=== PATIENT | female | born 2000 ===

== ENCOUNTER 2019-10-15 13:30 | Inpatient (IN) | payer MEDICAID ==
[~2019-10-15] VITALS: Ht 160 cm; Wt 57.5 kg
[2019-10-15 14:43] LABS: CLARITY,URINE CLOUDY (Clear); COLOR,URINE YELLOW (Yellow); GLUCOSE, URINE NEGATIVE (Neg); KETONES,URINE NEGATIVE (Neg); LEUKOCYTE ESTERASE ,URINE SMALL (Neg); NITRITES, URINE NEGATIVE (Neg); OCCULT BLOOD,URINE LARGE (Neg); PH,URINE 7.5 (4.8-8.0); PROTEIN,URINE 100 mg/dl (Neg); UA COLLECTION TYPE CLN CATCH MIDSTREAM; UROBILINOGEN,URINE >=8.0 E.U/dL (0.2-1.0)
[2019-10-15 14:44] LABS: URINE HCG NEGATIVE (NEG)
[2019-10-15 14:49] LABS: MUCUS STRANDS FEW /LPF (Neg)
[2019-10-15 14:50] LABS: BACTERIA,URINE 2+ /HPF (Neg); RBC,URINE 50-100 /HPF (0-2); SQUAMOUS EPITHELIAL CELL,UR MODERATE /LPF (FEW); WBC,URINE 50-100 /HPF (0-4)
[2019-10-15] MEDS ORDERED: ketorolac tromethamine 15mg/ml inj. IV ONE (15:10)
[2019-10-15] MEDS ORDERED: normal saline 1000ML IV soln IVB ONE (15:25)
[2019-10-15] MEDS ORDERED: piperacillin/tazo 3.375gm/50ml 50 ML IV ONE (15:29)
[2019-10-15] MEDS ORDERED: CefTRIAXone/D5W-Rocephin 1gm 50 ML IV ONE (15:30)
[2019-10-15 15:44] LABS: BASOPHILS % (AUTO) 0.1 % (0-1); EOSINOPHILS # (AUTO) 0.7 X10'3 (0-0.9); EOSINOPHILS % (AUTO) 3.5 % (0-6); HEMATOCRIT 37.9 % (35.0-45.0); HEMOGLOBIN 13.1 g/dl (12.0-16.0); LYMPHOCYTES # (AUTO) 0.7 X10'3 (1.1-4.8); LYMPHOCYTES % (AUTO) 3.4 % (21-51); MEAN CORPUSCULAR HEMOGLOBIN 31.6 PG (27.0-31.0); MEAN CORPUSCULAR HGB CONC 34.5 g/dL (33.0-36.5); MEAN CORPUSCULAR VOLUME 91.7 FL (78-98); MEAN PLATELET VOLUME 8.4 FL (7.4-10.4); MONOCYTES % (AUTO) 5.2 % (2-12); NEUTROPHILS # (AUTO) 17.1 X10'3 (1.8-7.7); NEUTROPHILS % (AUTO) 87.8 % (42-75); PLATELET COUNT 204 X10'3 (140-440); RED BLOOD COUNT 4.13 X10'6 (4.20-5.60); RED CELL DISTRIBUTION WIDTH 14.3 % (11.5-14.5); WHITE BLOOD COUNT 19.4 X10'3 (4.5-11.0)
[2019-10-15 16:00] LABS: ALBUMIN 2.6 G/DL (3.4-5.0); ALBUMIN/GLOBULIN RATIO 0.5 (1.1-1.5); ANION GAP 15 (8-16); ASPARTATE AMINO TRANSFERASE 29 U/L (10-37); BILIRUBIN,TOTAL 0.9 MG/DL (0.1-1.0); BLOOD UREA NITROGEN 14 MG/DL (7-18); BUN/CREATININE RATIO 10.8 (6.6-38.0); CALCIUM 8.4 MG/DL (8.5-10.1); CHLORIDE 105 MMOL/L (99-107); GLUCOSE 104 MG/DL (70-104); SODIUM 139 MMOL/L (135-145); TOTAL CARBON DIOXIDE 18.7 MMOL/L (24-32); TOTAL PROTEIN 7.5 G/DL (6.4-8.2); eGFR 52 ML/MIN
[2019-10-15 16:01] LABS: ALANINE AMINOTRANSFERASE 16 U/L (12-78); ALKALINE PHOSPHATASE 150 IU/L (46-116); AMYLASE 26 U/L (25-115); LIPASE 56 U/L (73-393)
--- NOTE | 2019-10-15 16:14 | NUR ---
Lab called to report negative Covid test on pt.
[2019-10-15] MEDS ORDERED: potassium CL 10mEq/100ml bag 100 ML IV PRN ×2 (19:15)
[2019-10-15] MEDS ORDERED: potassium Cl 20 mEq SR tablet PO PRN (19:15)
[2019-10-15] MEDS ORDERED: magnesium Cl slow-release 64mg tablet PO PRN (19:15)
[2019-10-15] MEDS ORDERED: magnesium 2GM in 50ml NS 50 ML IV PRN (19:15)
[2019-10-15] MEDS ORDERED: mag hydrox/Alum hydrox/simeth 30ml oral suspension PO PRN (19:15)
[2019-10-15] MEDS ORDERED: magnesium hydroxide 30ml (MOM) UD suspension PO PRN (19:15)
[2019-10-15] MEDS ORDERED: magnesium 4gm in 100ml NS 100 ML IV PRN (19:15)
[2019-10-15] MEDS ORDERED: ondansetron/PF 4mg/2ml inj IV PRN (19:15)
[2019-10-15] MEDS ORDERED: morphine 2 MG/ML inj. syringe IV PRN (19:15)
[2019-10-15] MEDS ORDERED: NO HOME MEDS (19:22)
[2019-10-15 19:37] LABS: CLARITY,URINE CLEAR (Clear); COLOR,URINE YELLOW (Yellow); GLUCOSE, URINE NEGATIVE (Neg); KETONES,URINE TRACE mg/dl (Neg); LEUKOCYTE ESTERASE ,URINE TRACE (Neg); NITRITES, URINE NEGATIVE (Neg); OCCULT BLOOD,URINE MODERATE (Neg); PH,URINE 6.5 (4.8-8.0); PROTEIN,URINE NEGATIVE (Neg)
[2019-10-15 19:44] LABS: BACTERIA,URINE NONE SEEN /HPF (Neg); RBC,URINE NONE SEEN /HPF (0-2); SQUAMOUS EPITHELIAL CELL,UR MODERATE /LPF (FEW); UA COLLECTION TYPE STRAIGHT CATH; WBC,URINE 0-4 /HPF (0-4)
[2019-10-15] MEDS: K and/or MAG REPLACEMENT MC SCH (20:00)
[2019-10-15] MEDS: normal saline 1000ml 1,000 ML IV SCH (20:06)
[2019-10-15] MEDS: acetaminophen 325mg tablet PO PRN (20:14)
--- NOTE | 2019-10-15 20:47 | NUR ---
Patient in room ED 16. I have received report from THIAGO Lambert and had the opportunity to ask questions and assume patient care.
--- NOTE | 2019-10-15 20:53 | NUR ---
pt arrived on the floor, a/o x4 in no distress
[2019-10-16] VITALS: BP 108/65
[2019-10-16] MEDS: HYDROcodone/acetaminophen 5mg/325mg tablet PO PRN ×4 (02:20→18:35)
[2019-10-16 05:09] LABS: BASOPHILS % (AUTO) 0.2 % (0-1); EOSINOPHILS # (AUTO) 0.5 X10'3 (0-0.9); EOSINOPHILS % (AUTO) 2.8 % (0-6); HEMATOCRIT 32.5 % (35.0-45.0); HEMOGLOBIN 11.2 g/dl (12.0-16.0); LYMPHOCYTES # (AUTO) 1.2 X10'3 (1.1-4.8); LYMPHOCYTES % (AUTO) 7.3 % (21-51); MEAN CORPUSCULAR HGB CONC 34.5 g/dL (33.0-36.5); MEAN CORPUSCULAR VOLUME 92.7 FL (78-98); MEAN PLATELET VOLUME 8.5 FL (7.4-10.4); MONOCYTES # (AUTO) 0.9 X10'3 (0-0.9); MONOCYTES % (AUTO) 5.5 % (2-12); NEUTROPHILS # (AUTO) 13.4 X10'3 (1.8-7.7); NEUTROPHILS % (AUTO) 84.2 % (42-75); PLATELET COUNT 187 X10'3 (140-440); RED CELL DISTRIBUTION WIDTH 14.6 % (11.5-14.5); WHITE BLOOD COUNT 15.9 X10'3 (4.5-11.0)
[2019-10-16] MEDS: normal saline 1000ml 1,000 ML IV SCH ×3 (05:13→16:24)
[2019-10-16 05:21] LABS: ALANINE AMINOTRANSFERASE 14 U/L (12-78); ALBUMIN 1.9 G/DL (3.4-5.0); ALBUMIN/GLOBULIN RATIO 0.5 (1.1-1.5); ALKALINE PHOSPHATASE 132 IU/L (46-116); ANION GAP 12 (8-16); ASPARTATE AMINO TRANSFERASE 23 U/L (10-37); BILIRUBIN,TOTAL 0.6 MG/DL (0.1-1.0); BLOOD UREA NITROGEN 11 MG/DL (7-18); BUN/CREATININE RATIO 9.6 (6.6-38.0); CALCIUM 7.8 MG/DL (8.5-10.1); CHLORIDE 110 MMOL/L (99-107); CREATININE 1.14 MG/DL (0.40-0.90); GLUCOSE 140 MG/DL (70-104); MAGNESIUM 1.9 MG/DL (1.5-2.4); POTASSIUM 3.4 MMOL/L (3.5-5.1); SODIUM 140 MMOL/L (135-145); TOTAL CARBON DIOXIDE 18.3 MMOL/L (24-32); TOTAL PROTEIN 5.8 G/DL (6.4-8.2); eGFR 60 ML/MIN
--- NOTE | 2019-10-16 06:49 | NUR ---
Problems reprioritized. Patient report given, questions answered & plan of care reviewed with Elmo.
[2019-10-16 07:42] VITALS: BP 126/92
[2019-10-16 07:43] LABS: TOTAL CELLS COUNTED 100; TOXIC GRANULATION 2+
[2019-10-16 07:44] LABS: TOXIC VACUOLATION 1+
[2019-10-16 07:46] LABS: PLATELET ESTIMATE NORMAL
[2019-10-16] MEDS: K and/or MAG REPLACEMENT MC SCH ×2 (08:00→19:32)
[2019-10-16] MEDS: potassium Cl 20 mEq SR tablet PO PRN ×3 (08:07→17:51)
[2019-10-16] MEDS: CefTRIAXone/D5W-Rocephin 1gm 50 ML IV SCH (08:07)
[2019-10-16 12:00] VITALS: BP 111/75
[2019-10-16 12:26] VITALS: BP 111/75
--- NOTE | 2019-10-16 14:23 | NUR ---
Patient self reported yellow urine, none was present. Addendum: 10/16/19 at 1428 by Vic CAT Amended: Links added.
--- NOTE | 2019-10-16 14:56 | NUR ---
Patient self reported last bm on 10/13 Addendum: 10/16/19 at 1456 by Vic CAT Amended: Links added.
[2019-10-16 18:15] VITALS: BP_SYST 134; BP_SYST 141; BP_DIAS 75; BP_DIAS 89
[2019-10-16] MEDS: phenazopyridine 100mg tablet PO PRN (18:35)
--- NOTE | 2019-10-16 18:35 | NUR ---
Patient in room [facility]. I have received report from THIAGO Aguirre and had the opportunity to ask questions and assume patient care.
--- NOTE | 2019-10-16 18:48 | NUR ---
Problems reprioritized. Patient report given, questions answered & plan of care reviewed with Loli DAS.
[2019-10-16] MEDS: acetaminophen 325mg tablet PO PRN (19:49)
[2019-10-17 00:15] VITALS: BP 116/78
[2019-10-17] MEDS: normal saline 1000ml 1,000 ML IV SCH (00:33)
[2019-10-17] MEDS: HYDROcodone/acetaminophen 5mg/325mg tablet PO PRN ×2 (04:30→12:43)
[2019-10-17] MEDS: phenazopyridine 100mg tablet PO PRN (04:30)
--- NOTE | 2019-10-17 06:50 | NUR ---
Problems reprioritized. Patient report given, questions answered & plan of care reviewed with THIAGO Paulson.
[2019-10-17 07:32] LABS: BASOPHILS % (AUTO) 0.3 % (0-1); EOSINOPHILS # (AUTO) 0.3 X10'3 (0-0.9); HEMATOCRIT 32.4 % (35.0-45.0); HEMOGLOBIN 10.9 g/dl (12.0-16.0); LYMPHOCYTES # (AUTO) 0.9 X10'3 (1.1-4.8); LYMPHOCYTES % (AUTO) 6.7 % (21-51); MEAN CORPUSCULAR HEMOGLOBIN 30.5 PG (27.0-31.0); MEAN CORPUSCULAR HGB CONC 33.7 g/dL (33.0-36.5); MEAN CORPUSCULAR VOLUME 90.5 FL (78-98); MEAN PLATELET VOLUME 8.2 FL (7.4-10.4); MONOCYTES # (AUTO) 1.6 X10'3 (0-0.9); MONOCYTES % (AUTO) 11.2 % (2-12); NEUTROPHILS # (AUTO) 11.3 X10'3 (1.8-7.7); NEUTROPHILS % (AUTO) 79.8 % (42-75); PLATELET COUNT 239 X10'3 (140-440); RED BLOOD COUNT 3.58 X10'6 (4.20-5.60); RED CELL DISTRIBUTION WIDTH 14.7 % (11.5-14.5); WHITE BLOOD COUNT 14.1 X10'3 (4.5-11.0)
[2019-10-17 07:45] LABS: ALANINE AMINOTRANSFERASE 17 U/L (12-78); ALBUMIN 1.6 G/DL (3.4-5.0); ALBUMIN/GLOBULIN RATIO 0.4 (1.1-1.5); ALKALINE PHOSPHATASE 144 IU/L (46-116); ANION GAP 12 (8-16); ASPARTATE AMINO TRANSFERASE 20 U/L (10-37); BILIRUBIN,TOTAL 0.8 MG/DL (0.1-1.0); BLOOD UREA NITROGEN 9 MG/DL (7-18); BUN/CREATININE RATIO 8.7 (6.6-38.0); CALCIUM 7.9 MG/DL (8.5-10.1); CHLORIDE 109 MMOL/L (99-107); CREATININE 1.04 MG/DL (0.40-0.90); GLUCOSE 97 MG/DL (70-104); MAGNESIUM 1.7 MG/DL (1.5-2.4); POTASSIUM 3.6 MMOL/L (3.5-5.1); SODIUM 139 MMOL/L (135-145); TOTAL CARBON DIOXIDE 18.2 MMOL/L (24-32); TOTAL PROTEIN 5.8 G/DL (6.4-8.2); eGFR 67 ML/MIN
[2019-10-17] MEDS: K and/or MAG REPLACEMENT MC SCH (08:00)
[2019-10-17 08:03] VITALS: BP 122/84
[2019-10-17] MEDS: CefTRIAXone/D5W-Rocephin 1gm 50 ML IV SCH (08:38)
[2019-10-17] MEDS ORDERED: LEVO500T2 PO (10:21)
[2019-10-17] MEDS ORDERED: HYDR-4383 PO (10:21)
[2019-10-17 11:00] VITALS: BP 130/76
--- NOTE | 2019-10-17 13:20 | NUR ---
Pt DC to home with mom. Pt is A & O x 4, pt is no apparent distress. pt verbalizes understanding of all DC orders. Pt will follow up with PCP for 1 week follow up. Pt packed belongings and carried them with her. Pt wheeled to the front where mom meet her to take her home.
== END 2019-10-17 13:14 | disposition home or self-care (01) | DRG 720 ==
LOC: ER 13:31 → ED HOLD 19:13 → SUR 3N 20:54
PROVIDERS: ADMIT Family Medicine; ATTEND Internal Medicine
DX: A41.9 Sepsis, unspecified organism (principal); N17.9 Acute kidney failure, unspecified; J90 Pleural effusion, not elsewhere classified; N10 Acute pyelonephritis; Z87.440 Personal history of urinary (tract) infections; B96.20 Unspecified Escherichia coli [E. coli] as the cause of diseases classified elsewhere; Z20.828 Contact with and (suspected) exposure to other viral communicable diseases
CPT/HCPCS: 36415; 74176; 76700; 80053; 81001; 81025; 82150; 83605; 83690; 83735; 85007; 85025; 87040; 87077; 87081; 87088; 87186; 87635; 99285; G0378; J0696; J1885; J2543; J7030